=== PATIENT | male | born 1990 | race American Indian/Alaskan Native ===

== ENCOUNTER 2022-04-25 08:04 | Emergency (ER) | payer SELFPAY ==
--- NOTE | 2022-04-25 09:01 | XRay Report ---
LEFT SHOULDER 3 VIEW(S) INDICATION / CLINICAL INFORMATION: possible dislocation. Left shoulder pain COMPARISON: None available. FINDINGS: BONES / JOINT(S): There is anterior inferior dislocation of the humeral head with respect to the suzanne oid. No fracture is identified. No significant arthritis. SOFT TISSUES: No significant abnormality. ADDITIONAL FINDINGS: None. IMPRESSION: 1. Anterior left shoulder dislocation. Signer Name: Lizandro Bean MD Signed: 04/25/2022 8:57 AM Workstation Name: [id number]
[2022-04-25] MEDS ORDERED: MORPHINE 4 MG/1 ML INJ IV ONE ×3 (10:36→16:32)
[2022-04-25] MEDS ORDERED: ONDANSETRON 4 MG/2 ML INJ IV ONE ×2 (10:37→16:33)
[2022-04-25] MEDS ORDERED: ETOMIDATE 20 MG/10 ML INJ IV ONE (12:57)
[2022-04-25] MEDS ORDERED: propofoL 200 MG/20 ML VIAL IV ONE ×2 (14:13→16:33)
--- NOTE | 2022-04-25 15:00 | Emergency Department Report ---
Upper Extremity - HPI Chief Complaint: Shoulder Injury Stated Complaint: DISLOCATED SHOULDER Time Seen by Provider: 04/25/22 10:34 Upper Extremity: Left Shoulder Occurred When: Today Mechanism: Inversion, Hyperextension Severity: moderate Symptoms: Yes Pain with Movement, Yes Deformity, Yes Limited Range of Movement, No Numbness, No Weakness, No Swelling, No Bruising/Ecchymosis, No Laceration or Abrasion ED Review of Systems ROS: Stated complaint: DISLOCATED SHOULDER Other details as noted in HPI Constitutional: denies: chills, fever Eyes: denies: eye pain, eye discharge, vision change ENT: denies: ear pain, throat pain Respiratory: no symptoms reported Cardiovascular: denies: chest pain, palpitations Endocrine: no symptoms reported Gastrointestinal: denies: abdominal pain, nausea, diarrhea Genitourinary: denies: urgency, dysuria Skin: denies: rash, lesions Neurological: denies: headache, weakness, paresthesias Psychiatric: denies: anxiety, depression Hematological/Lymphatic: denies: easy bleeding, easy bruising ED Past Medical Hx - Past Medical History Previous Medical History?: Yes Upper Extremity Exam - Exam General: Vital signs noted. No distress. Alert and acting appropriately. Head and Torso: No HEENT Abnormality, No Neck Tenderness, No Chest/Lungs Abnormality, No Abdominal Tenderness, No Back Tenderness Shoulder Exam: Yes Shoulder Tenderness, Yes Normal Range of Motion in Shoulder, Yes Shoulder Deformity, No Clavicle Tenderness Arm Exam: No Arm/Humerus Tenderness, No Arm Deformity Elbow: No Elbow Tenderness, No Normal Range of Motion in Elbow, No Elbow Deformity Forearm: No Forearm Tenderness, No Forearm Deformity, No Pain with Pronation, No Pain with Supination Wrist: No Wrist Tenderness, No Normal ROM in Wrist, No Wrist Deformity, No Snuffbox Tenderness, No Pain with Axial Thumb Compression Hand: No Hand Tenderness, No Hand Deformity ED Course Vital Signs 04/25/22 08:20 Temperature 99.4 F Pulse Rate 81 Respiratory 16 Rate Blood Pressure 131/80 O2 Sat by Pulse 98 Oximetry Critical care attestation.: If time is entered above; I have spent that time in minutes in the direct care of this critically ill patient, excluding procedure time. ED Disposition Clinical Impression: Shoulder dislocation Disposition: HOME / SELF CARE / HOMELESS Is pt being admited?: No Does the pt Need Aspirin: No Condition: Stable Instructions: Shoulder Dislocation Referrals: PRIMARY CARE, [Primary Care Provider] - 3-5 Days
--- NOTE | 2022-04-25 15:23 | XRay Report ---
XR shoulder 2+V LT INDICATION / CLINICAL INFORMATION: post red. COMPARISON: Examination earlier today FINDINGS: Interval reduction of shoulder dislocation with now anatomic alignment. Signer Name: Ran Hunter MD Signed: 04/25/2022 3:19 PM Workstation Name: [id number]
[2022-04-25 15:43] VITALS: BP 113/63
== END 2022-04-25 15:07 | disposition home or self-care (01) ==
LOC: ED 08:04
DX: S43.005A Unspecified dislocation of left shoulder joint, initial encounter (principal); X58.XXXA Exposure to other specified factors, initial encounter; Y93.89 Activity, other specified; Y92.89 Other specified places as the place of occurrence of the external cause; Y99.8 Other external cause status
CPT/HCPCS: 23650; 73030; 96374; 96375; 96376; 99283; J2270; J2405; J2704; J3490